=== PATIENT | female | born 1960 | race Caucasian/White ===

== ENCOUNTER 2017-01-02 08:00 | Emergency (ER) | payer BC, OTHER ==
[~2017-01-02] VITALS: Ht 160 cm; Wt 63.0 kg
[~2017-01-02 08:00] MED LIST: CALC500C70 PO; CALC625T PO; CHOL100010 PO; CLBPO15 TOP; CLRD24 PO; DEXT30TA7 PO; EPP3/2 IM; ESCI1TAB10 PO; FLUT0.15 NAE; HYDR-3124 PO; MAGIC MIX PO; MECL1TAB42 PO; MELA3CAP PO; MRLP17 PO; MULT-506 PO; OMEG1CAP71 PO; PRLSR20 PO; SIMV40TA2 PO; TRAZ1TAB16 PO; ZNTT/150 PO
[2017-01-02 08:05] VITALS: TEMP 36.6; Ht 160 cm; Wt 63.0 kg
--- NOTE | 2017-01-02 08:33 | EMERGENCY ROOM VISIT NOTE ---
ED Visit Note First contact with patient: 08:09 CHIEF COMPLAINT: knee pain HISTORY OF PRESENT ILLNESS: This 56-year-old female patient presents to the emergency department ambulatory after sustaining an injury to the right knee when she tripped and fell last night. She fell directly onto the knee. The patient denies any other injuries besides their knee. The patient admits to swelling but denies bruising. There is pain over the anterior aspect. They rate the pain as sharp and 8/10. The patient states they are not able to walk on it. No numbness or tingling. No previous injuries to this knee. No ankle, foot or hip pain. REVIEW OF SYSTEMS: A 6 system review of systems was completed with positives and pertinent negatives listed in the HPI. ALLERGIES: Codeine MEDICATIONS: See nursing notes PMH: Depression, hyperlipidemia, GERD, IBS SOCIAL HISTORY: The patient lives locally. She does not smoke PHYSICAL EXAM: Vital Signs: Reviewed Nurse's notes, vital signs stable. GENERAL : This is a 56-year-old female, no acute distress, but appears in pain, well- developed, well-nourished. MENTAL STATUS: Alert, oriented to person place and time, and cooperative. MUSCULOSKELETAL: The right knee is mildly swollen. There is minimal ecchymosis. There is several superficial abrasions to the right knee. There is a very superficial abrasion to the left knee. There is no significant joint effusion present. The patient is tender over the patella and proximal tibia. There is no joint line tenderness. The patella does not subluxate. Range of motion is intact but painful. Strength of the quads and hamstrings is 5/5. There is no obvious laxity. The foot and toes are warm and well-perfused. Dorsalis pedis pulse 2+. Sensation to pain and light touch is intact. Capillary refill less than 2 seconds. EMERGENCY DEPARTMENT COURSE: I examined the patient. X-rays of the right knee were reviewed by myself and read by radiology and reveal no obvious fracture or dislocation. The patient was placed in a knee immobilizer under my direction and the position was satisfactory. The patient was instructed on the use of a walker. She declined pain medication. She has seen [facility] in the past. She requested that we attempt to get an appointment for her. Case management was able to secure an appointment this morning. The patient was discharged home in good condition. DISCHARGE INSTRUCTIONS: Ice and elevate knee for swelling and pain. Wear knee immobilizer when up and about. Use walker- minimal weight on foot. Follow-up with orthopedics today as scheduled. Return with worsening symptoms. [~ rep ct add3]] RIGHT KNEE 3 VIEWS CLINICAL HISTORY: right knee pain, fall Right COMPARISON: None. DISCUSSION: The bones and joint spaces appear intact. There is no evidence of fracture, dislocation or bony disease. There is no evidence for soft tissue swelling. IMPRESSION: Negative study. Current/Historical Medications Scheduled Calcium Polycarbophil (Fibercon), 1,250 MG PO QAM Calcium/Vitamin D (Os-Otilio 500 Plus D), 1 TAB PO QAM Cholecalciferol (Vitamin D3), 2,000 UNITS PO DAILY Epinephrine (Epipen), 0.3 MG IM UD Escitalopram Oxalate (Lexapro), 10 MG PO QAM Fluticasone Propionate (Nasal) (Flonase Allergy Relief), 1 SPRAY ADELE BID Melatonin (Melatonin), 3 MG PO HS Multivitamin (Multivitamin), 1 TAB PO QAM [place] 3 Fatty Acids-[place] 6 Fa ([place] 3-6-9 Complex), 1 CAP PO QAM Omeprazole (Prilosec), 20 MG PO QAM Polyethylene Glycol 3350 (Miralax), 17 GM PO DAILY Ranitidine (Zantac), 150 MG PO HS Simvastatin (Zocor), 40 MG PO HS Trazodone Hcl (Desyrel), 25-50 MG PO HS Scheduled PRN Clobetasol Propionate (Clobetasol Propionate), 1 APPLN TOP BID PRN for HIVES Hydroxyzine Hcl (Atarax), 1-2 TABS PO Q6H PRN for HIVES Meclizine Hcl (Meclizine Hcl), 1 TAB PO TID PRN for Dizziness or Vertigo Allergies Coded Allergies: Codeine (Verified Allergy, Mild, DIZZY, NAUSEA, 01/02/17) Ibuprofen (Unverified Adverse Reaction, Unknown, NAUSEA, "I SEE BLACK SPOTS", 01/02/17) Vital Signs Date Time Temp Pulse Resp B/P Pulse Ox O2 Delivery O2 Flow Rate FiO2 01/02/17 09:52 70 18 131/74 99 01/02/17 08:05 36.6 91 16 97/63 100 Room Air Departure Information Impression Primary Impression: Knee pain Dispostion Home / Self-Care Condition GOOD Referrals Gertel Dozier DO (PCP) Major Brewer D.O. Patient Instructions Knee Pain, My [facility] Additional Instructions Ice and elevate knee for swelling and pain. Wear knee immobilizer when up and about. Use walker- minimal weight on foot. Follow-up with orthopedics today as scheduled. Return with worsening symptoms. Problem Qualifiers Primary Impression: Knee pain Laterality: right Chronicity: acute Qualified Codes: M25.561 - Pain in right knee
--- NOTE | 2017-01-02 09:06 | DIAGNOSTIC IMAGING REPORT ---
RIGHT KNEE 3 VIEWS CLINICAL HISTORY: right knee pain, fall Right COMPARISON: None. DISCUSSION: The bones and joint spaces appear intact. There is no evidence of fracture, dislocation or bony disease. There is no evidence for soft tissue swelling. IMPRESSION: Negative study. Electronically signed by: Antonio Haynes M.D. 01/02/2017 9:05 AM Dictated Date/Time: 01/02/2017 8:57 AM
[2017-01-02] MEDS ORDERED: POLY335019 PO (09:16)
[2017-01-02] MEDS ORDERED: CHOL2000 PO (09:18)
[2017-01-02 09:52] VITALS: BP 131/74; PULSE 70; O2SAT 99
== END 2017-01-02 09:54 | disposition home or self-care (01) ==
LOC: C.EDB 08:01 → C.EDA 09:54
DX: M25.561 Pain in right knee (principal); W01.0XXA Fall on same level from slipping, tripping and stumbling without subsequent striking against object, initial encounter; F32.9 Major depressive disorder, single episode, unspecified; E78.5 Hyperlipidemia, unspecified; K21.9 Gastro-esophageal reflux disease without esophagitis; K58.9 Irritable bowel syndrome, unspecified; Z79.899 Other long term (current) drug therapy

== ENCOUNTER → 2017-02-07 | Outpatient (CLI) | payer BC ==
[~2017-02-07] MED LIST changes: -CHOL100010 PO; +CHOL2000 PO; -CLRD24 PO; -DEXT30TA7 PO; -MAGIC MIX PO; -MRLP17 PO; +POLY335019 PO; +TRAZ-119 PO; -TRAZ1TAB16 PO
--- NOTE | 2017-02-07 13:12 | MAMMOGRAPHY REPORT ---
BILATERAL DIGITAL SCREENING MAMMOGRAM WITH CAD: 02/07/2017 TECHNIQUE: Current study was also evaluated with a Computer Aided Detection (CAD) system. Bilatera l CC and MLO views including implant displaced views were obtained. COMPARISON: Comparison is made to exams dated: 02/07/2016 mammogram, 01/31/2015 mammogram, 01/24/2015 mammogram, 01/01/2013 mammogram, 09/03/2011 mammogram, and 08/13/2010 mammogram - [facility]. BREAST COMPOSITION: There are scattered areas of fibroglandular density in both breasts. FINDINGS: No suspicious masses, calcifications, or areas of architectural distortion are noted in e ither breast. There has been no significant interval change compared to prior exams. Bilateral subp ectoral saline implants are stable in appearance. Asymmetry seen within the left 12 to 1:00 breast, best seen on the cc view, is stable compared to prior exams, without a corresponding abnormality se en on MRI performed in 2014. IMPRESSION: ACR BI-RADS CATEGORY 2: BENIGN There is no mammographic evidence of malignancy. A 1 year screening mammogram is recommended. The p atient will receive written notification of the results. Approximately 10% of breast cancers are not detected with mammography. A negative mammographic repor t should not delay biopsy if a clinically suggestive mass is present. Niki Turcios M.D. /:02/07/2017 12:28:02 Machine Burrer: Irais ALDANA)(Terra)(BD), [facility] letter sent: Normal 1/2 BI-RADS Code: ACR BI-RADS Category 2: Benign
== END | disposition home or self-care (01) ==
LOC: C.MAMM 10:35
PROVIDERS: ATTEND Obstetrics & Gynecology
DX: Z12.31 Encounter for screening mammogram for malignant neoplasm of breast (principal)

== ENCOUNTER → 2017-03-05 | Outpatient (CLI) | payer BC | END | disposition home or self-care (01) | LOC: C.PAPS 10:14 | PROVIDERS: ATTEND Obstetrics & Gynecology | DX: Z01.419 Encounter for gynecological examination (general) (routine) without abnormal findings (principal) ==

== ENCOUNTER → 2017-04-10 | Outpatient (CLI) | payer BC ==
[2017-04-10 11:24] LABS: ALT/SGPT 31 U/L (12-78); AST/SGOT 23 U/L (15-37); BLOOD UREA NITROGEN 13 mg/dl (7-18); BUN/CREATININE RATIO 16.4 (10-20); CALCIUM 8.9 mg/dl (8.5-10.1); CARBON DIOXIDE 33 mmol/L (21-32); CHLORIDE 108 mmol/L (98-107); CHOLESTEROL 202 mg/dl (0-200); CREATININE 0.78 mg/dl (0.60-1.20); GLUCOSE 75 mg/dl (70-99); POTASSIUM 4.1 mmol/L (3.5-5.1); SODIUM 146 mmol/L (136-145)
[2017-04-10 11:26] LABS: ALB/GLOB RATIO 1.3 (0.9-2); ALKALINE PHOSPHATASE 86 U/L (45-117); CHOLESTEROL/HDL RATIO 2.7; HDL CHOLESTEROL 74 mg/dl; LDL CHOLESTEROL CALCULATED 103 mg/dl; TRIGLYCERIDES 123 mg/dl (0-150); VERY LOW DENSITY LIPOPROT CALC 25 mg/dl
== END | disposition home or self-care (01) ==
LOC: C.LABBC 08:10
PROVIDERS: ATTEND Family Medicine
DX: E78.00 Pure hypercholesterolemia, unspecified (principal)

== ENCOUNTER → 2018-01-22 | Outpatient (CLI) | payer BC ==
[~2018-01-22] MED LIST changes: +RANI150T85 PO; -ZNTT/150 PO
[2018-01-22 11:14] LABS: ALT/SGPT 49 U/L (12-78); BLOOD UREA NITROGEN 21 mg/dl (7-18); CALCIUM 9.2 mg/dl (8.5-10.1); CARBON DIOXIDE 27 mmol/L (21-32); CREATININE 0.83 mg/dl (0.60-1.20); GLUCOSE 84 mg/dl (70-99); POTASSIUM 4.3 mmol/L (3.5-5.1); SODIUM 140 mmol/L (136-145)
[2018-01-22 11:25] LABS: CHOLESTEROL 286 mg/dl (0-200); LDL CHOLESTEROL CALCULATED 190 mg/dl
== END | disposition home or self-care (01) ==
LOC: C.LABBC 08:28
PROVIDERS: ATTEND Family Medicine
DX: R94.6 Abnormal results of thyroid function studies (principal); E78.00 Pure hypercholesterolemia, unspecified

== ENCOUNTER → 2018-02-11 | Outpatient (CLI) | payer BC ==
--- NOTE | 2018-02-12 14:44 | MAMMOGRAPHY REPORT ---
BILATERAL DIGITAL SCREENING MAMMOGRAM TOMOSYNTHESIS WITH CAD: 02/11/2018 CLINICAL HISTORY: Patient presents for routine screening. S/P bilateral augmentation. TECHNIQUE: Breast tomosynthesis in addition to standard 2D mammography was performed. Current study was also evaluated with a Computer Aided Detection (CAD) system. COMPARISON: Comparison is made to exams dated: 02/07/2017 mammogram, 02/07/2016 mammogram, 02/09/2015 east MRI, 01/31/2015 ultrasound, 01/31/2015 mammogram, and 01/24/2015 mammogram - [facility]. BREAST COMPOSITION: There are scattered areas of fibroglandular density in both breasts. FINDINGS: No suspicious masses, calcifications, or areas of architectural distortion are noted in ei ther breast. There has been no significant interval change compared to prior exams. Bilateral subpec kimo saline implants are stable in appearance. IMPRESSION: ACR BI-RADS CATEGORY 2: BENIGN There is no mammographic evidence of malignancy. A 1 year screening mammogram is recommended. The pa tient will receive written notification of the results. Approximately 10% of breast cancers are not detected with mammography. A negative mammographic report should not delay biopsy if a clinically suggestive mass is present. Niki Turcios M.D. /:02/11/2018 15:35:06 Egg Sorter: Prema Coello, [facility] letter sent: Normal 1/2 BI-RADS Code: ACR BI-RADS Category 2: Benign
== END | disposition home or self-care (01) ==
LOC: C.MAMM 14:12
PROVIDERS: ATTEND Obstetrics & Gynecology
DX: Z12.31 Encounter for screening mammogram for malignant neoplasm of breast (principal); Z98.82 Breast implant status

== ENCOUNTER → 2018-03-06 | Outpatient (CLI) | payer BC | END | disposition home or self-care (01) | LOC: C.PAPS 14:29 | PROVIDERS: ATTEND Obstetrics & Gynecology | DX: Z01.419 Encounter for gynecological examination (general) (routine) without abnormal findings (principal) ==

== ENCOUNTER 2018-03-17 21:26 | Emergency (ER) | payer BC ==
[~2018-03-17] VITALS: Ht 157.5 cm; Wt 64.0 kg
[2018-03-17 21:28] VITALS: TEMP 36.8; Ht 157.5 cm; Wt 64.0 kg
[2018-03-17] MEDS ORDERED: CEPHALEXIN 500MG HOME PACK 1 EA BTL PO ONE (21:45)
[2018-03-17] MEDS ORDERED: DIPHTHERIA/TETANUS/PERTUSSIS 0.5 ML SYR/VIAL IM. ONE (21:45)
--- NOTE | 2018-03-17 22:26 | EMERGENCY ROOM VISIT NOTE ---
History First contact with patient: 21:31 Chief Complaint: INFECTION Stated Complaint: INFECTED HAND, PAIN, HOT, PUSS Nursing Triage Summary: working on [employer] and got a splinter in between the fingers on the right hand. today she squeezed drainage yellow in color out of it. fingers and hand swollen red and traveling up the right arm History of Present Illness The patient is a 57 year old female who presents to the Emergency Room with complaints of right hand pain and swelling who had a splinter in between her second and third metacarpal from over the weekend from mulching who today squeezed out pus and the piece of splinter came out. The redness worsened and this is what prompts her to come to the ER. Patient denies fevers, nausea, vomiting, numbness, difficulty moving the fingers, weakness, drug use. Review of Systems A 6 system review of systems was completed with positives and pertinent negatives listed in the HPI. Past Medical/Surgical History GERD, IBS, depression, appendectomy Social History Smoking Status: Never Smoker Alcohol Use: none Drug Use: none Marital Status: Occupation Status: employed Current/Historical Medications Scheduled Calcium Polycarbophil (Fibercon), 1,250 MG PO QAM Calcium/Vitamin D (Os-Otilio 500 Plus D), 1 TAB PO QAM Cholecalciferol (Vitamin D3), 2,000 UNITS PO DAILY Epinephrine (Epipen), 0.3 MG IM UD Escitalopram Oxalate (Lexapro), 10 MG PO QAM Fluticasone Propionate (Nasal) (Flonase Allergy Relief), 1 SPRAY ADELE BID Melatonin (Melatonin), 3 MG PO HS Multivitamin (Multivitamin), 1 TAB PO QAM [place] 3 Fatty Acids-[place] 6 Fa ([place] 3-6-9 Complex), 1 CAP PO QAM Omeprazole (Prilosec), 20 MG PO QAM Polyethylene Glycol 3350 (Miralax), 17 GM PO DAILY Ranitidine (Zantac), 150 MG PO HS Simvastatin (Zocor), 40 MG PO HS Trazodone Hcl (Desyrel), 25-50 MG PO HS Scheduled PRN Clobetasol Propionate (Clobetasol Propionate), 1 APPLN TOP BID PRN for HIVES Hydroxyzine Hcl (Atarax), 1-2 TABS PO Q6H PRN for HIVES Meclizine Hcl (Meclizine Hcl), 1 TAB PO TID PRN for Dizziness or Vertigo Physical Exam Vital Signs Date Time Temp Pulse Resp B/P (MAP) Pulse Ox O2 Delivery O2 Flow Rate FiO2 03/17/18 21:28 36.8 72 20 128/70 100 Room Air Physical Exam VITALS: Vitals are noted on the nurse's note and reviewed by myself. Vital signs stable. GENERAL: Pleasant female, in no acute distress, nondiaphoretic, well-developed well-nourished. SKIN: Capillary reflex less than 2 seconds. HEENT: Normocephalic. PERRLA. EOMI. Nares patent. Mucous membranes moist. MUSCULOSKELETAL: No gross musculoskeletal defects. There is no deformity of the right hand. There is tenderness second and third webspace of the fingers with erythema and edema without lymphangitis that is 3 cm x 5 cm without palpable abscess with small puncture keli presents with minimal expression of yellow purulent material that was sent for culture. There is no thenar or hypothenar eminence atrophy. Normal thumb opposition to all fingers. Normal abduction and adduction to resistance of the fingers. Pincer strength 5/5, card reader strength 5/5. There is no laceration. Capillary refill less than 3 seconds. No tenderness of the fingers or wrist. Full range of motion of the wrist. No snuff box tenderness. Radial pulse 2+. NEURO: Patient was alert and oriented to person place and time. Normal sensation to light and sharp touch. Deep tendon reflexes 2+ throughout. No focal neurological deficits. Medical Decision & Procedures Medications Administered Medications (Trade) Dose Ordered Sig/Marcus Route Start Time Stop Time Status Last Admin Dose Admin Diphtheria/ Pertussis/Tetanus Vacc (Adacel Inj) 0.5 ml ONCE ONCE IM. 03/17/18 21:45 03/17/18 21:46 DC 03/17/18 22:05 0.5 ML ED Course Prior records reviewed and summarized as above. Triage Nursing notes reviewed. Additional history obtained from family. The patient's history was concerning for swelling and redness of the skin. Differential diagnosis: Etiologies such as cellulitis, abscess, MRSA infection, DVT, necrotizing fasciitis, dermatitis, drug eruption, as well as others were entertained.. Physical examination: The physical examination was consistent with cellulitis ER treatment provided: Keflex, wound culture, bacitracin and bandage On reassessment the patient felt better. Diagnostics interpreted by me: The labs revealed WC pending Imaging studies: Hand x-ray with no foreign body per my interpretation or fracture. This appears to be isolated cellulitis. Patient had no lymphangitis. She was afebrile nontoxic. She had no signs of tendon involvement of the fingers. She is advised to take antibiotics as directed and to follow-up family care in a few days or here in the ER sooner for fevers, spreading infection, severe pain, difficulty to move fingers, worsening signs or symptoms or as needed. Patient was neurovascularly and neurologically intact. She is able to fully extend and flex the fingers without difficulties. No signs of compartment syndrome. No foreign body on x-ray. No signs of abscess on clinical exam. By the evaluation outlined above emergent etiologies such as abscess, necrotizing fasciitis, DVT, as well as others were deemed relatively unlikely. The pt informed about the findings as listed above. All questions were answered and pleased with the treatment. Return instructions were outlined and the patient was discharged in stable condition. Outpatient prescription management: Keflex Referral: The patient was referred back to primary care physician for follow-up in 2 to 3 days for a recheck of the current condition. The chart was completed utilizing [employer] Speech voice recognition software. Grammatical errors, random word insertions, pronoun errors, and incomplete sentences are an occassional consequence of this system due to software limitations, ambient noise, and hardware issues. Any formal questions or concerns about the content, text, or information contained within the body of this dictation should be directly addressed to the physician delinquent tax collection assistant for clarification. Medical Decision As above Medication Reconcilliation Current Medication List: was personally reviewed by me Blood Pressure Screening Patient's blood pressure: Normal blood pressure Impression Primary Impression: Cellulitis of right hand Departure Information Dispostion Home / Self-Care Condition GOOD Referrals Chata Rizoz MD (PCP) Patient Instructions My [facility] Additional Instructions Antibiotic ointment and bandage to the areas until healed. Cephalexin(Keflex) 500mg: Take one pill four times daily for 10 days for your skin infection. All antibiotics can cause diarrhea. If this occurs and you feel worse or it does not resolve in 1-2 days follow up with your doctor or return to the Emergency Department as this could be signs of serious underlying problems. Any medication can cause an allergic reaction, stop the pills immediately and return to the ER for rash, hives, breathing difficulties, or swelling. Acetaminophen(Tylenol) may be used for fever or pain. Use 1000mg every six hours as needed. Avoid using more than 4000mg in a 24 hour period. Warm compresses to the affected area 4 times daily for 15-20 minutes. Rest and drink plenty of fluids. Continue current medications. Return to the ER for severe pain, persistent fevers, spreading redness, or any worsening of your condition. Follow up with your primary physician within 2-3 days for a recheck of the current condition.
[2018-03-17] MEDS ORDERED: CEPH500C2 PO (22:27)
--- NOTE | 2018-03-17 22:29 | DIAGNOSTIC IMAGING REPORT ---
R HAND MIN 3 VIEWS ROUTINE CLINICAL HISTORY: Right hand infection. Possible foreign body COMPARISON: None. DISCUSSION: No acute fractures or dislocations are visualized. There are no erosive or destructive changes. There is a tiny periarticular calcification at the level of the distal interphalangeal joint of the index finger. This could relate to an old chip fracture. No radiopaque foreign bodies are visualized. IMPRESSION: 1. No acute fractures. 2. No evidence of erosive disease 3. No radiopaque foreign bodies are visualized Electronically signed by: Ruiz Brooks M.D. 03/17/2018 10:27 PM Dictated Date/Time: 03/17/2018 10:26 PM
[2018-03-17 22:39] VITALS: BP 126/72; PULSE 76; O2SAT 98
== END 2018-03-17 22:38 | disposition home or self-care (01) ==
LOC: C.EDB 21:26 → C.EDD 22:38
DX: L03.113 Cellulitis of right upper limb (principal); K21.9 Gastro-esophageal reflux disease without esophagitis; K58.9 Irritable bowel syndrome, unspecified; F32.9 Major depressive disorder, single episode, unspecified; Z79.899 Other long term (current) drug therapy; Z23 Encounter for immunization